=== PATIENT | male | born 1950 | race Caucasian/White ===

== ENCOUNTER 2023-06-07 15:37 | Emergency (ER) | payer MEDICARE ==
[~2023-06-07] VITALS: Wt 83.9 kg
[~2023-06-07 15:37] MED LIST: KEFLEX500 MG PO
[2023-06-07 15:59] LABS: BASO # 0.1 10*3/uL (0.0-0.1); BASO % 0.5 % (0.0-1.0); EOS # 0.2 10*3/uL (0.0-0.4); EOS % 1.7 % (1.0-4.0); HEMATOCRIT 48.7 % (42.0-52.0); LYMPH % 17.3 % (27.0-41.0); MEAN CELL VOLUME 91.2 fl (80.0-94.0); MEAN CORPUSCULAR HGB CONC 32.9 g/dl (33.0-37.0); MEAN PLATELET VOLUME 9.8 fl (9.6-12.3); MONO # 0.7 10*3/uL (0.1-1.0); MONO % 6.5 % (3.0-9.0); NEUT # 8.4 10*3/uL (2.3-7.9); NEUT % 73.7 % (47.0-73.0); PLATELET COUNT AUTOMATED 214 10*3/uL (130-400); RED BLOOD COUNT 5.34 10*6/uL (4.50-5.90); RED CELL DISTRI WIDTH 12.9 % (0-14.5); WHITE BLOOD COUNT 11.4 10*3/uL (4.8-10.8)
[2023-06-07 16:21] LABS: ALKALINE PHOSPHATASE 73 U/L (46-116); BUN 16 mg/dl (9-23); CHLORIDE 101 mmol/L (98-107); POTASSIUM 3.8 mmol/L (3.4-5.1); SGPT/ALT 45 U/L (5-49); TOTAL PROTEIN 7.4 gm/dL (6.0-8.0)
[2023-06-07] MEDS ORDERED: LIPITOR80 MG PO (16:24)
[2023-06-07] MEDS ORDERED: ASPIRIN ADULT L81 M1 PO (16:25)
[2023-06-07] MEDS ORDERED: ZETIA10 MG PO (16:25)
[2023-06-07] MEDS ORDERED: LOPRESSOR25 MG PO (16:27)
== END 2023-06-07 18:32 | disposition home or self-care (01) ==
LOC: ED 15:37
PROVIDERS: Physician Assistant Medical
DX: M54.2 Cervicalgia (principal); R68.84 Jaw pain; I10 Essential (primary) hypertension; E78.5 Hyperlipidemia, unspecified; I25.2 Old myocardial infarction; Z79.899 Other long term (current) drug therapy; Z79.82 Long term (current) use of aspirin

== ENCOUNTER 2024-11-10 17:36 | Emergency (ER) | payer MEDICARE ==
[~2024-11-10] VITALS: Ht 182.8 cm; Wt 85.7 kg
[~2024-11-10 17:36] MED LIST changes: +ASPIRIN ADULT L81 M1 PO; +LIPITOR80 MG PO; +LOPRESSOR25 MG PO; +ZETIA10 MG PO
[2024-11-10 18:14] LABS: BASO # 0.1 10*3/uL (0.0-0.1); BASO % 0.3 % (0.0-1.0); EOS # 0.1 10*3/uL (0.0-0.4); EOS % 0.3 % (1.0-4.0); MEAN CELL VOLUME 90.9 fl (80.0-94.0); MEAN CORPUSCULAR HGB 30.4 pg (27.0-31.0); MEAN PLATELET VOLUME 9.9 fl (9.6-12.3); MONO # 1.1 10*3/uL (0.1-1.0); MONO % 5.0 % (3.0-9.0); NEUT # 18.9 10*3/uL (2.3-7.9); NEUT % 87.0 % (47.0-73.0); NUCLEATED RED BLOOD CELL 0.0 % (0.0-0.0); NUCLEATED RED BLOOD CELL 0.0 10*3/uL (0.0-0.0); PLATELET COUNT AUTOMATED 216 10*3/uL (130-400); RED CELL DISTRI WIDTH 13.0 % (0-14.5)
[2024-11-10 18:24] LABS: ACT PARTIAL THROMBO TIME 25.0 SECONDS (20.0-32.1)
[2024-11-10] MEDS ORDERED: Ondansetron Hydrochloride 4 MG/2 ML VIAL IV ONE (18:40)
[2024-11-10 18:47] LABS: BUN 14 mg/dl (9-23); CPK 373 U/L (34-171); ETHYL ALCOHOL < 3.0 mg/dl (<3)
[2024-11-10 19:09] LABS: BILIRUBIN Negative (Negative); BLOOD Trace-Lysed (Negative); CLARITY Clear (Clear); COLOR Yellow (Yellow); KETONE 1+ (Negative); LEUKO ESTERASE Negative (Negative); NITRITE Negative (Negative); PH 5.5 (4.5-8.0); SPECIFIC GRAVITY 1.025 (1.001-1.030); UROBILINOGEN 1.0 E.U./dl (0.0-1.0)
[2024-11-10 19:16] LABS: URINE AMPHETAMINES Negative (1000ng/ml); URINE BARBITURATES Negative (200ng/ml); URINE BENZODIAZEPINES Negative (200ng/ml); URINE CANNABINOIDS (THC) Negative (50ng/ml); URINE COCAINE Negative (300ng/ml); URINE METHADONE Negative (300ng/ml); URINE OPIATES Negative (300ng/ml); URINE PHENCYCLIDINE Negative (25ng/ml)
[2024-11-10 19:22] LABS: BACTERIA 2+; MUCOUS 1+
== END 2024-11-10 19:06 | disposition short-term general hospital (02) ==
LOC: ED 17:36
PROVIDERS: Emergency Medicine
DX: S06.5XAA Traumatic subdural hemorrhage with loss of consciousness status unknown, initial encounter (principal); S06.6X0A Traumatic subarachnoid hemorrhage without loss of consciousness, initial encounter; S42.001A Fracture of unspecified part of right clavicle, initial encounter for closed fracture; I11.0 Hypertensive heart disease with heart failure; E78.00 Pure hypercholesterolemia, unspecified; I25.2 Old myocardial infarction; Z79.899 Other long term (current) drug therapy; Z79.82 Long term (current) use of aspirin; W18.39XA Other fall on same level, initial encounter; Y93.89 Activity, other specified; Y92.89 Other specified places as the place of occurrence of the external cause; Y99.8 Other external cause status